=== PATIENT | male | born 1990 | race Hispanic/Latino ===

== ENCOUNTER → 2021-03-02 | Outpatient (CLI) | payer OTHER ==
--- NOTE | 2021-03-02 12:06 | DIREP ---
PROCEDURE:XRAY SINUSES PARANASAL<3 VWS COMPARISON:None. INDICATIONS:Z00.00 HISTORY AND PHYSICAL EVALUATION TECHNIQUE: Frontal, Reagan, and lateral views FINDINGS: MAXILLARY:Normal. No mucosal thickening or fluid level. ETHMOID:Normal. No mucosal thickening or fluid level. FRONTAL:Hypoplastic frontal sinuses SPHENOID:Normal. No mucosal thickening or fluid level. OTHER:Negative. CONCLUSION:Normal examination. Dictated by: Chino Comer MD on 03/02/2021 at 11:54 AM
--- NOTE | 2021-03-02 12:11 | DIREP ---
PROCEDURE:CHEST 2 VIEWS COMPARISON:None. INDICATIONS:Z00.00 HISTORY AND PHYSICAL EVALUATION FINDINGS: LUNGS/PLEURA:No significant pulmonary parenchymal abnormalities. No effusions. VASCULATURE:Normal. Unremarkable pulmonary vasculature. CARDIAC:Normal. No cardiac silhouette abnormality or cardiomegaly. MEDIASTINUM:Normal. No visible mass or adenopathy. BONES:Normal. No fracture or visible bony lesion. OTHER:Negative. CONCLUSION:Normal examination. Dictated by: Chino Comer MD on 03/02/2021 at 12:08 PM
== END | disposition home or self-care (01) ==
LOC: RAD 10:25
PROVIDERS: ATTEND Nurse Practitioner
DX: Z00.00 Encounter for general adult medical examination without abnormal findings (principal)
CPT/HCPCS: 70220; 71046